=== PATIENT | female | born 1980 | race Caucasian/White ===

== ENCOUNTER 2025-06-08 10:11 | Emergency (ER) | payer OTHER ==
--- NOTE | 2025-06-08 10:29 | ERPHSYRPT ---
- History of Present Illness Time Seen by Provider: 06/08/25 10:29 Source: patient, family Exam Limitations: no limitations Physician History: This is a morbidly obese 44-year-old white female patient who arrives by private vehicle accompanied by her spouse with a concern of an elevated blood sugar level of 380 that was measured this morning. This morning's level was obtained before she ate and after her p.m. Ozempic and p.m. long-acting insulin injection she gave herself yesterday evening. They were not sure what to do so the patient's prescribing provider was contacted. The nurse in the office told them to come to the emergency department to be evaluated. Patient did not have any significant symptoms. She does not take any diabetic medications in the mornings of each day. Patient does not have nausea vomiting or diarrhea symptoms. She has no abdominal pain. She has no chest pain and she is not short of breath. Timing/Duration: today Severity: mild Associated Symptoms: denies symptoms Allergies/Adverse Reactions: citalopram [From [facility]] Allergy (Verified 06/08/25 10:31) Home Medications: ALPRAZolam [Alprazolam] 0.5 mg PO TID 06/08/25 [History] Aripiprazole 10 mg [Abilify 10 MG] 10 mg PO DAILY 06/08/25 [History] Blood-Glucose Meter [Accu-Chek Guide Monitor System] See Rx Instructions .ROUTE .COMPLEX 06/08/25 [History] Blood-Glucose Meter [Accu-Chek Guide Monitor System] See Rx Instructions .ROUTE .COMPLEX 06/08/25 [History] Gabapentin [Gabapentin ER] 600 mg PO DAILY 06/08/25 [History] Insulin Glargine [Lantus Insulin] 30 unit SQ DAILY 06/08/25 [History] Omeprazole 20 mg PO DAILY 06/08/25 [History] Semaglutide [Ozempic] 0.25 mg SQ WEEKLY 06/08/25 [History] Venlafaxine HCl [Venlafaxine HCl ER] 150 mg PO DAILY 06/08/25 [History] Travel Risk - International Travel Have you traveled outside of the country in past 3 weeks: No - Emerging Infectious Disease Are you exhibiting symptoms associated with any current EIDs: No - Review of Systems Constitutional: No Symptoms Eyes: No Symptoms Ears, Nose, & Throat: No Symptoms Respiratory: No Symptoms Cardiac: No Symptoms Abdominal/Gastrointestinal: No Symptoms Genitourinary Symptoms: No Symptoms Musculoskeletal: No Symptoms Skin: No Symptoms Neurological: No Symptoms Psychological: No Symptoms Endocrine: No Symptoms Hematologic/Lymphatic: No Symptoms Immunological/Allergic: No Symptoms All Other Systems: Reviewed and Negative - Past Medical History Pertinent Past Medical History: Yes - Nursing Vital Signs Nursing Vital Signs: Initial Vital Signs Temperature 97.3 F 06/08/25 10:11 Pulse Rate 115 H 06/08/25 10:11 Respiratory Rate 20 06/08/25 10:11 Blood Pressure 154/89 06/08/25 10:11 O2 Sat by Pulse Oximetry 94 L 06/08/25 10:11 Pain Scale Pain Intensity 6 - Physical Exam General Appearance: no apparent distress, alert, anxiety, obese Eye Exam: PERRL/EOMI, eyes nml inspection Ears, Nose, Throat Exam: normal ENT inspection, moist mucous membranes Neck Exam: normal inspection, non-tender, supple, full range of motion Respiratory Exam: normal breath sounds, lungs clear, airway intact, No chest tenderness, No respiratory distress Cardiovascular Exam: regular rate/rhythm, normal heart sounds, normal peripheral pulses Gastrointestinal/Abdomen Exam: soft, normal bowel sounds, No tenderness Pelvic Exam: not done Rectal Exam: not done Back Exam: normal inspection, normal range of motion, No CVA tenderness, No vertebral tenderness Extremity Exam: normal inspection, normal range of motion, pelvis stable Neurologic Exam: alert, oriented x 3, cooperative, hog counter II-XII nml as tested, nml cerebellar function, nml station & gait, sensation nml Skin Exam: normal color, warm, dry Lymphatic Exam: No adenopathy SpO2 Interpretation: normal O2 Delivery: Room Air - Course Nursing assessment & vital signs reviewed: Yes Ordered Tests: Active Orders 24 hr Category Date Time Status CBC W DIFF Stat Lab 06/08/25 11:04 Completed CMP Stat Lab 06/08/25 11:04 Completed MAGNESIUM Stat Lab 06/08/25 11:04 Completed POCT GLUCOSE Stat Lab 06/08/25 10:24 Completed UA W/RFX UR CULTURE Stat Lab 06/08/25 10:55 Completed Medication Summary Discontinued Medications Generic Name Dose Route Start Last Admin Trade Name Freq PRN Reason Stop Dose Admin Insulin Human Regular 8 unit 06/08/25 12:17 Insulin Regular, Human 1 Unit SQ 06/08/25 12:18 STAT ONE Lab/Rad Data: Laboratory Result Diagrams 06/08/25 11:04 06/08/25 11:04 Laboratory Results 06/08/25 06/08/25 06/08/25 Range/Units 11:04 11:04 10:55 WBC 12.4 H (3.98-10.04) x10^3/uL RBC 4.90 (3.93-5.22) x10^6/uL Hgb 13.1 (11.2-15.7) g/dL Hct 40.0 (34.1-44.9) % MCV 81.6 (79.4-94.8) fL MCH 26.7 (25.6-32.2) pg MCHC 32.8 (32.2-35.5) g/dL RDW 14.1 (11.7-14.4) % Plt Count 248 (182-369) x10^3/uL MPV 10.5 (9.4-12.3) fL Gran % 63.7 (34.0-71.1) % Immature Gran % (Auto) 0.6 H (0.001-0.429) % Nucleat RBC Rel Count 0.0 (0.00-0.2) % Eos # (Auto) 0.08 (0.04-0.36) x10^3/uL Immature Gran # (Auto) 0.08 H (0.001-0.031) x10^3u/L Absolute Lymphs (auto) 3.62 (1.18-3.74) x10^3/uL Absolute Monos (auto) 0.68 (0.24-0.86) x10^3/uL Absolute Nucleated RBC 0.00 (0.00-0.012) x10^3u/L Lymphocytes % 29.1 (19.3-51.7) % Monocytes % 5.5 (4.7-12.5) % Eosinophils % 0.6 L (0.7-5.8) % Basophils % 0.5 (0.1-1.2) % Absolute Granulocytes 7.90 H (1.56-6.13) x10^3/uL Basophils # 0.06 (0.01-0.08) x10^3/uL Sodium 135 (135-145) mmol/L Potassium 3.9 (3.5-5.1) mmol/L Chloride 99 (98-107) mmol/L Carbon Dioxide 25 (22-30) mmol/L Anion Gap 14.3 (5-15) MEQ/L BUN 12 (7-17) mg/dL Creatinine 0.44 L (0.52-1.04) mg/dL Estimated GFR 123.0 ML/MIN Glucose 326 H (74-106) mg/dL POC Glucometer (74 to 106) mg/dL Calcium 9.1 (8.4-10.2) mg/dL Magnesium 1.4 L (1.6-2.3) mg/dL Total Bilirubin < 0.10 L (0.2-1.3) mg/dL AST 33 (14-36) U/L ALT 43 H (0-35) U/L Alkaline Phosphatase 170 H (38-126) U/L Serum Total Protein 6.9 (6.3-8.2) g/dL Albumin 4.1 (3.5-5.0) g/dL Urine Color Yellow (Yellow) Urine Appearance Clear (Clear) Urine pH 5.5 (4.6-8.0) Ur Specific [place] >=1.030 A (1.005-1.030) Urine Protein Negative (Negative) Urine Glucose (UA) >=1000 A (Negative) mg/dL Urine Ketones 15 A (Negative) Urine Blood Negative (Negative) Urine Nitrite Negative (Negative) Urine Bilirubin Negative (Negative) Urine Urobilinogen 0.2 (0.2) mg/dL Ur Leukocyte Esterase Negative (Negative) U Hyaline Cast (Auto) NONE SEEN (0-2) /LPF Urine Microscopic RBC 3-5 (0-5) /HPF Urine Microscopic WBC 6-10 A (0-5) /HPF Ur Epithelial Cells None Seen (None Seen) /HPF Urine Bacteria None Seen (None Seen) /HPF Urine Culture Reflexed NO (NO) 06/08/25 Range/Units 10:24 WBC (3.98-10.04) x10^3/uL RBC (3.93-5.22) x10^6/uL Hgb (11.2-15.7) g/dL Hct (34.1-44.9) % MCV (79.4-94.8) fL MCH (25.6-32.2) pg MCHC (32.2-35.5) g/dL RDW (11.7-14.4) % Plt Count (182-369) x10^3/uL MPV (9.4-12.3) fL Gran % (34.0-71.1) % Immature Gran % (Auto) (0.001-0.429) % Nucleat RBC Rel Count (0.00-0.2) % Eos # (Auto) (0.04-0.36) x10^3/uL Immature Gran # (Auto) (0.001-0.031) x10^3u/L Absolute Lymphs (auto) (1.18-3.74) x10^3/uL Absolute Monos (auto) (0.24-0.86) x10^3/uL Absolute Nucleated RBC (0.00-0.012) x10^3u/L Lymphocytes % (19.3-51.7) % Monocytes % (4.7-12.5) % Eosinophils % (0.7-5.8) % Basophils % (0.1-1.2) % Absolute Granulocytes (1.56-6.13) x10^3/uL Basophils # (0.01-0.08) x10^3/uL Sodium (135-145) mmol/L Potassium (3.5-5.1) mmol/L Chloride (98-107) mmol/L Carbon Dioxide (22-30) mmol/L Anion Gap (5-15) MEQ/L BUN (7-17) mg/dL Creatinine (0.52-1.04) mg/dL Estimated GFR ML/MIN Glucose (74-106) mg/dL POC Glucometer 376 H (74 to 106) mg/dL Calcium (8.4-10.2) mg/dL Magnesium (1.6-2.3) mg/dL Total Bilirubin (0.2-1.3) mg/dL AST (14-36) U/L ALT (0-35) U/L Alkaline Phosphatase (38-126) U/L Serum Total Protein (6.3-8.2) g/dL Albumin (3.5-5.0) g/dL Urine Color (Yellow) Urine Appearance (Clear) Urine pH (4.6-8.0) Ur Specific [place] (1.005-1.030) Urine Protein (Negative) Urine Glucose (UA) (Negative) mg/dL Urine Ketones (Negative) Urine Blood (Negative) Urine Nitrite (Negative) Urine Bilirubin (Negative) Urine Urobilinogen (0.2) mg/dL Ur Leukocyte Esterase (Negative) U Hyaline Cast (Auto) (0-2) /LPF Urine Microscopic RBC (0-5) /HPF Urine Microscopic WBC (0-5) /HPF Ur Epithelial Cells (None Seen) /HPF Urine Bacteria (None Seen) /HPF Urine Culture Reflexed (NO) - Progress Progress: improved, re-examined Progress Note: 06/08/25 11:00 My medical decision making and the assignment of moderate complexity of this patient's medical issue is based on review of the patient's past medical history, review the patient's medication list, reviewed patient drug allergy list, history present illness and physical findings on examination. The workup in this patient includes urinalysis, CBC, CMP, magnesium level. Differential diagnosis includes was not limited to hyperglycemia, electrolyte abnormalities, dehydration, urinary tract infection. 06/08/25 12:21 I interpreted the patient's laboratory data results. Based on the laboratory data results, the patient has a low magnesium level 1.4. I will provide her with supplemental magnesium oxide orally. Patient's blood sugar is 326. She does have long-acting insulin on board. Therefore, I will only provide her with 8 units subcutaneously of regular insulin. We will repeat [id number] glucose level in approximately an hour. She can be discharged if this value is appropriate. Counseled pt/family regarding: lab results, diagnosis, need for follow-up Medical Desision Making - Independent Historian Additional History obtained from: Spouse - Diagnostic Testing Diagnostic test were ordered, analyzed, and reviewed by me: Yes - Risk of complications Low Risk: Low risk of morbidity from additional dx testing or treatment - Departure Departure Disposition: Home Clinical Impression: Hyperglycemia, Hypomagnesemia, Mild dehydration Condition: Stable Critical Care Time: No Referrals: DOCTOR,NO FAMILY [Primary Care Provider, UNKNOWN] - Follow up/PCP as directed Additional Instructions: Drink plenty of clear liquids. Monitor your blood sugar closely. Take your diabetic medications as prescribed.
[2025-06-08 10:31] VITALS: TEMP 97.3
[2025-06-08 11:06] LABS: BASOPHIL % 0.5 % (0.1-1.2); Basophil (Absolute #) 0.06 x10^3/uL (0.01-0.08); Eosinophil (Absolute #) 0.08 x10^3/uL (0.04-0.36); Hematocrit 40.0 % (34.1-44.9); Hemoglobin 13.1 g/dL (11.2-15.7); IMMATURE GRAN # 0.08 x10^3u/L (0.001-0.031); IMMATURE GRAN % 0.6 % (0.001-0.429); Lymphocyte (Absolute #) 3.62 x10^3/uL (1.18-3.74); Mean Corpuscular Hemoglobin 26.7 pg (25.6-32.2); Mean Corpuscular Hgb Concent. 32.8 g/dL (32.2-35.5); Monocyte (Absolute #) 0.68 x10^3/uL (0.24-0.86); NUCLEATED RBC # 0.00 x10^3u/L (0.00-0.012); NUCLEATED RBC % 0.0 % (0.00-0.2); Platelet Count 248 x10^3/uL (182-369); Red Blood Count 4.90 x10^6/uL (3.93-5.22); White Blood Count 12.4 x10^3/uL (3.98-10.04)
[2025-06-08 11:16] VITALS: PULSE 94; RESP 16
[2025-06-08 11:19] LABS: Calcium 9.1 mg/dL (8.4-10.2); Carbon Dioxide 25 mmol/L (22-30); Creatinine 1 0.44 mg/dL (0.52-1.04); EST GLOMERULAR FILTRATION RATE 123.0 ML/MIN; Glucose 326 mg/dL (74-106); Potassium 3.9 mmol/L (3.5-5.1); SGOT/AST 33 U/L (14-36); SGPT/ALT 43 U/L (0-35); Total Protein 6.9 g/dL (6.3-8.2)
[2025-06-08 11:55] LABS: Glucose, Urine >=1000 mg/dL (Negative); Protein,Urine Dip Negative (Negative)
[2025-06-08] MEDS ORDERED: HUMULIN R ONE (12:25)
[2025-06-08] MEDS: HUMULIN R SQ ONE (12:26)
[2025-06-08] MEDS ORDERED: MAG-OX 400 ONE (12:26)
[2025-06-08] MEDS: MAG-OX 400 PO ONE (12:27)
[2025-06-08 12:45] VITALS: BP 129/86; O2SAT 96
== END 2025-06-08 12:51 | disposition home or self-care (01) ==
LOC: ED 10:11
DX: E11.65 Type 2 diabetes mellitus with hyperglycemia (principal); E83.42 Hypomagnesemia; E86.0 Dehydration; Z79.4 Long term (current) use of insulin; Z79.85 Long-term (current) use of injectable non-insulin antidiabetic drugs; Z79.899 Other long term (current) drug therapy